=== PATIENT | female | born 1980 | race African-American/Black ===

== ENCOUNTER 2018-08-24 10:05 | Inpatient (IN) | payer OTHER ==
[2018-08-23 11:01] LABS: BASOPHILS # (AUTO) 0.03 x10^3/uL (0-0.1); BASOPHILS % (AUTO) 0 % (0-1); EOSINOPHILS # (AUTO) 0.07 x10^3/uL (0-0.4); EOSINOPHILS % (AUTO) 1 % (1-7); LYMPHOCYTES # (AUTO) 2.69 x10^3/uL (1-3.4); LYMPHOCYTES % (AUTO) 38 % (22-44); MD NO; MEAN CORPUSCULAR HEMOGLOBIN 24.4 pg (27.0-34.8); MEAN CORPUSCULAR HGB CONC 32.9 g/dL (32.4-35.8); MEAN CORPUSCULAR VOLUME 74.1 fL (80-100); MEAN PLATELET VOLUME 7.4 fL (7.4-10.4); MONOCYTES # (AUTO) 0.37 x10^3/uL (0.2-0.8); MONOCYTES % (AUTO) 5 % (2-9); NEUTROPHILS # (AUTO) 3.91 x10^3/uL (1.8-6.8); NEUTROPHILS % (AUTO) 55 % (42-75); PLATELET COUNT 376 x10^3/uL (130-400); RED BLOOD COUNT 5.39 x10^6/uL (3.82-5.3); RED CELL DISTRIBUTION WIDTH 16.1 % (9.6-15.2)
[~2018-08-24] VITALS: Ht 160 cm; Wt 88.2 kg
[~2018-08-24 10:05] MED LIST: ALBU8.5H5 INH; BACITRACIN 50,000 UNIT ONE; BACITRACIN OINT 500U/GM, 15 GM ONE; BUDE10.22 INH; BUPIVACAINE/PF-EPI 0.5% 1:200K ONE; CEFUROXIME 1.5 GM ONE; CLON0.5T PO; GABA300C10 PO; HYDROCORTISONE 100 MG INJ. ONE; LEVO750T26 PO; LORA-445 PO; MANNITOL PMX 20% 0 ML ONE; ONDA8TAB9 PO; OXYC-302 PO; OXYC10TA6 PO; PROC10TA78 PO; SUMA50TA3 PO; THROMBIN 5,000 UNIT VIAL TP ONE; VENL150C PO; ZOLP10TA PO
[2018-08-24 12:46] VITALS: BP 119/77
[2018-08-24] MEDS ORDERED: LACTATED RINGERS 1,000 ML IV SCH (12:50)
[2018-08-24] MEDS ORDERED: MIDAZOLAM 1 MG/ML, 2ML ONE (14:20)
[2018-08-24] MEDS ORDERED: PROPOFOL 50 ML ONE (14:20)
[2018-08-24] MEDS ORDERED: FENTANYL PF 250 MCG/5ML ONE (14:20)
[2018-08-24] MEDS ORDERED: CEFAZOLIN 1,000 MG ONE ×2 (15:10→15:45)
[2018-08-24] MEDS ORDERED: GENTAMICIN 80 MG/2 ML ONE (15:11)
[2018-08-24] MEDS ORDERED: BACITRACIN 50,000 UNIT ONE (15:11)
[2018-08-24] MEDS ORDERED: BUPIVACAINE/PF 0.5% ONE (15:29)
[2018-08-24] MEDS ORDERED: NEOSTIGMINE 1 MG/ML, 10ML ONE (15:45)
[2018-08-24] MEDS ORDERED: GLYCOPYRROLATE 0.2MG/1ML, 5ML ONE (15:45)
[2018-08-24] MEDS ORDERED: DEXAMETHASONE 4 MG/ML, 1ML ONE (15:45)
[2018-08-24] MEDS ORDERED: ROCURONIUM 10 MG/ML,10ML ONE (15:45)
[2018-08-24] MEDS ORDERED: PROPOFOL 10 MG/ML, 20ML ONE (15:45)
[2018-08-24] MEDS ORDERED: SUCCINYLCHOLINE 20 MG/ML, 10ML ONE (15:45)
[2018-08-24] MEDS ORDERED: ONDANSETRON 2MG/ML, 2ML ONE (15:45)
[2018-08-24] MEDS ORDERED: EPHEDRINE 50 MG/ML, 1ML IM PRN (17:00)
[2018-08-24] MEDS ORDERED: PROMETHAZINE 25 MG/ML, 1ML IV PRN (17:00)
[2018-08-24] MEDS ORDERED: MEPERIDINE/PF 25MG/0.5ML IVPush PRN (17:00)
[2018-08-24] MEDS ORDERED: DIPHENHYDRAMINE 50 MG/ML, 1ML IVPush PRN (17:00)
[2018-08-24] MEDS ORDERED: ONDANSETRON 2MG/ML, 2ML IV PRN (17:00)
[2018-08-24] MEDS ORDERED: PROMETHAZINE 12.5 MG SUPP PR PRN (17:00)
[2018-08-24] MEDS ORDERED: OXYcodone 5 MG/5 ML ORAL.SOL UDC PO PRN (17:00)
[2018-08-24] MEDS ORDERED: ONDANSETRON ODT 8 MG PO PRN (17:00)
[2018-08-24] MEDS ORDERED: EPHEDRINE 50 MG/ML, 1ML IVPush PRN (17:00)
[2018-08-24] MEDS ORDERED: PROMETHAZINE 25 MG SUPP PR PRN (17:00)
[2018-08-24] MEDS ORDERED: MORPHINE SULFATE 4 MG/ML, 1ML IVPush PRN (17:00)
[2018-08-24] MEDS ORDERED: MIDAZOLAM 1 MG/ML, 2ML IV PRN (17:00)
[2018-08-24] MEDS ORDERED: FENTANYL PF 100 MCG/2ML ONE (18:43)
[2018-08-24] MEDS ORDERED: OXYcodone 5 MG/5 ML ORAL.SOL UDC ONE (18:43)
[2018-08-24] MEDS ORDERED: HYDROmorphone 2 MG/ML, 1ML ONE (18:44)
[2018-08-24] MEDS: FENTANYL PF 100 MCG/2ML IV PRN ×3 (18:47→18:57)
[2018-08-24] MEDS: HYDROmorphone 2 MG/ML, 1ML IVPush PRN ×4 (19:10→23:55)
[2018-08-24] MEDS ORDERED: LORazepam 2 MG/ML, 1ML ONE (19:24)
[2018-08-24 19:45] VITALS: BP 120/82
[2018-08-24] MEDS ORDERED: ACETAMINOPHEN 650 MG SUPP PR PRN (21:30)
[2018-08-24] MEDS ORDERED: DIPHENHYDRAMINE 25 MG CAPSULE PO PRN (21:30)
[2018-08-24] MEDS ORDERED: ACETAMINOPHEN 325 MG TABLET PO PRN (21:30)
[2018-08-24] MEDS ORDERED: hydrALAzine 20 MG/ML, 1ML IV PRN (21:30)
[2018-08-24] MEDS ORDERED: DIPHENHYDRAMINE 50 MG/ML, 1ML IV PRN (21:30)
[2018-08-24] MEDS ORDERED: LORazepam 1MG TABLET PO PRN (21:30)
[2018-08-24] MEDS ORDERED: ALBUTEROL SULFATE 2.5MG/0.5ML NPPB PRN (21:30)
[2018-08-24] MEDS ORDERED: ENOXAPARIN 40 MG/0.4 ML SQ SCH (22:00)
[2018-08-24] MEDS: D5%-LACTATED RINGERS 1,000 ML IV SCH (22:13)
[2018-08-24] MEDS: ONDANSETRON 2MG/ML, 2ML IV PRN (22:38)
[2018-08-24] MEDS: OXYcodone/APAP 5/325MG TABLET PO PRN (23:03)
[2018-08-24] MEDS: CEFAZOLIN PMX 2GM/50ML 50 ML IVPB SCH (23:59)
[2018-08-25 00:04] VITALS: BP 120/80
[2018-08-25] MEDS: HYDROmorphone 2 MG/ML, 1ML IVPush PRN ×3 (02:48→07:26)
[2018-08-25 04:28] VITALS: BP 106/69
[2018-08-25] MEDS: ONDANSETRON 2MG/ML, 2ML IV PRN ×2 (04:45→11:34)
[2018-08-25] MEDS: CEFAZOLIN PMX 2GM/50ML 50 ML IVPB SCH (07:41)
[2018-08-25 07:45] VITALS: BP 111/72
[2018-08-25] MEDS ORDERED: ONDA4TAB7 PO (08:31)
[2018-08-25] MEDS ORDERED: DOXY100T PO (08:31)
[2018-08-25] MEDS: OXYcodone/APAP 5/325MG TABLET PO PRN ×4 (08:33→13:47)
[2018-08-25] MEDS ORDERED: SODIUM CHLORIDE FLUSH 10ML SYR IVF SCH (09:00)
[2018-08-25] MEDS: D5%-LACTATED RINGERS 1,000 ML IV SCH (10:00)
[2018-08-25 12:55] VITALS: BP 103/68
== END 2018-08-25 14:19 | disposition home or self-care (01) | DRG 585 ==
LOC: ORIP 12:12 → 4NOR 20:10 → DCLOUNGE 08-25 14:05
PROVIDERS: ADMIT Plastic Surgery; ATTEND Plastic Surgery
PROC: 0HPU0JZ Removal of Synthetic Substitute from Left Breast, Open Approach (ICD-10-PCS; 2018-08-24)
PROC: 0HRU0JZ Replacement of Left Breast with Synthetic Substitute, Open Approach (ICD-10-PCS; 2018-08-24)
PROC: 0HRU075 Replacement of Left Breast using Latissimus Dorsi Myocutaneous Flap, Open Approach (ICD-10-PCS; principal; 2018-08-24 14:30)
DX: T85.44XA Capsular contracture of breast implant, initial encounter (principal); N64.89 Other specified disorders of breast; Z85.3 Personal history of malignant neoplasm of breast; Y83.8 Other surgical procedures as the cause of abnormal reaction of the patient, or of later complication, without mention of misadventure at the time of the procedure; Y92.89 Other specified places as the place of occurrence of the external cause; Z88.8 Allergy status to other drugs, medicaments and biological substances; Z88.6 Allergy status to analgesic agent; Z91.030 Bee allergy status; J45.909 Unspecified asthma, uncomplicated
CPT/HCPCS: 36415; J3490; J7121; 85025; C1729; C1789; G0378; J0690; J0697; J1100; J1170; J2250; J2405; J2704; J2710; J3010; J0330; J1200; J1580; J1720; J7120